=== PATIENT | female | born 2000 | race Caucasian/White ===

== ENCOUNTER → 2024-07-29 08:00 | Outpatient (BNV) | payer BC, SELFPAY | PROVIDERS: Visit Provider Internal Medicine | DX: I47.10 Supraventricular tachycardia, unspecified (principal) | CPT/HCPCS: 93244 ==

== ENCOUNTER → 2024-07-29 15:00 | Outpatient (REF) | payer BC, SELFPAY ==
--- OUTSIDE RECORDS SUMMARY | 2024-08-01 16:13 | XMS_ITS | Encounter Summary ---
Author Organization [facility] Address [address] [place] [id number] Phone Care Team Providers Care Consumer Attorney Name Role Phone Marielle Yin MD Primary Care Provider [phone] Encounter Details Date Type Department Care Team (Late st Contact Info) Description 04/24/2012 Documentation [facility] [place] [facility] Family Medicine [address] [place] [address] Family Medicine, Physician [address] [place] [address] Social History Tobacco Use Types Packs/Day Years Used Date Smoking Tobacco: Never Assessed Comments Unknown Sex and Gender Information Value Date Recorded Sex Assigned at Not on file Legal Sex Female 12:30 PM EDT Gender Identity Not on file Sexual Orientation Bisexual 03/15/2021 4: 16 PM EST documented as of this encounter Plan of Treatment Not on file documented as of this encounter Visit Diagnoses Not on filedocumented in this encounter Care Teams Consumer Attorney Relationship Specialty Start Date End Date Marielle Yin MD [address] [place] [id number] PCP - General 05/20/19 06/11/23 documented as of this encounter
--- OUTSIDE RECORDS SUMMARY | 2024-08-01 16:13 | XMS_ITS | Encounter Summary ---
Author Organization [facility] Address [address] [place] [phone] Phone Care Team Providers Care Oyster Cultivator Name Role Phone Marielle Yin MD Primary Care Provider [phone] Reason for Visit * Reason Comments Med Refill Encounter Details Date Type Department Care Team ([facility] st Contact Info) Description 04/12/2021 Refill [facility] [place] [address] [place] [address] Marielle Yin MD [address] [place] [phone] Acute asthma Social History Tobacco Use Types Packs/Day Years Used Date Smoking Tobacco: Never Comments:Never smoker Comments No Sex and Gender Information Value Date Recorded Sex Assigned at Not on file Legal Sex Female 12:30 PM EDT Gender Identity Not on file Sexual Orientation Bisexual 03/15/2021 4: 16 PM EST documented as of this encounter Miscellaneous Notes * Telephone Encounter - Anabell Meredith LPN - 04/12/2021 6:19 PM EST Last refill 03/15/21-VM full unable to LM. Denied rx request asking that pt contact our office. documented in this encounter Plan of Treatment Not on file documented as of this encounter Visit Diagnoses Diagnosis Acute asthma Unspecified asthma documented in this encounter Care Teams Oyster Cultivator Relationship Specialty Start Date End Date Marielle Yin MD [address] [place] [address] PCP - General 05/20/19 3 documented as of this encounter
--- OUTSIDE RECORDS SUMMARY | 2024-08-01 16:13 | XMS_ITS | Encounter Summary ---
Author Organization [facility] Address [address] [place] [address] Phone Care Team Providers Care Automobile Mechanic Name Role Phone Marielle Yin MD Primary Care Provider [phone] Encounter Details Date Type Department Care Team (Late st Contact Info) Description 06/08/2019 Conversion Encounter [facility] [address] [place] [address] Marielle Yin MD [address] [place] [address] Social History Tobacco Use Types Packs/Day Years Used Date Smoking Tobacco: Never Comments:Never smoker Comments Unknown Sex and Gender Information Value Date Recorded Sex Assigned at Not on file Legal Sex Female 12:30 PM EDT Gender Identity Not on file Sexual Orientation Bisexual 03/15/2021 4: 16 PM EST documented as of this encounter Plan of Treatment Not on file documented as of this encounter Visit Diagnoses Not on filedocumented in this encounter Care Teams Automobile Mechanic Relationship Specialty Start Date End Date Marielle Yin MD [address] [place] [address] PCP - General 05/20/19 06/11/23 documented as of this encounter
--- OUTSIDE RECORDS SUMMARY | 2024-08-01 16:13 | XMS_ITS | Clinical Summary ---
Author Organization [facility] Address [address] [place] [phone] Phone Care Team Providers Care Shaft Sinker Name Role Phone Unavailable Primary Care Provider Unavailabl e Allergies No known active allergies Medications citalopram 40 MG tablet 1 Active Magnesium 100 MG capsule magnesium Active Cetirizine HCl (ZyrTEC Allergy) 10 MG capsule Zyrtec 10 mg capsule Take by oral route. Active albuterol HFA 108 (90 Base) MCG/ACT inhalerIndicati ons:Acute asthma Inhale 2 puffs every 4 (four) hours as needed for wheezing or shortness of breath. 1 Units 1 Active Additional Information Patient not taking.Reported on 06/08/2022 Active Problems Problem Noted Date Diagnosed Date COVID-19 08/28/2021 Overview (08/28/2021): ER at [facility] [place] for chest pain and SOB. Allergic rhinitis 07/13/2021 Overview (07/13/2021): 07/29: f/u allergy - rec restart allergy shots and start up OTC meds - antihistamine and flonase Anxiety 03/15/2021 Overview (03/15/2021): Therapy and psychiatry. Assessment & Plan (03/15/2021 4:43 PM EST): Continue Celexa as prescribed by psychiatry. Continue therapy. BMI 33.0-33.9,adult 03/15/2021 Overview (03/15/2021): Refer to nutrition. Assessment & Plan (03/15/2021 4:46 PM EST): Refer to artificial stone setter. Attention deficit hyperactivity disorder 021 Assessment & Plan (03/15/2021 4:39 PM EST): Not taking medications at this time. Follow up with psychiatry as needed. Acute asthma 10/05/2020 Overview (07/13/2021): 02/27: good control per handyperson. Albuterol prn. 07/29: exacerbation - seen by allergy. Start Advair. Assessment & Plan (03/15/2021 4:40 PM EST): Continue to use albuterol as needed with URI/sinus infection. Refill sent to pharm. Chronic maxillary sinusitis 05/05/2020 Overview (03/15/2021): CT sinus 2017 with trace maxillary sinus disease. [facility] - last 04/2019, consider balloon sinuplasty, looking for ENT option near [facility]. No prior improvement on multiple rounds of antibiotics, sudafed, antihistamines, or flonase. Refer back to ENT 04/2020. 10/27 Augmentin 02/27 21 day course recommended but pt says she only got a 14 day course: Astelin nasal spray, flonase - per allergy; 03/29: cefdinir 21 day course sent to pharm. Follow up with ENT if not improving. Assessment & Plan (03/15/2021 4:39 PM EST): Start 21 day course of Cefdinir. Follow up with ENT if not improving. Plenty of fluid. Assessment & Plan (02/15/2021 12:14 PM EST): Will tx with extended course of Augmentin. This was previously prescribed by ENT in October but she reports she did not take the medication. Rec f/u with ENT. Assessment & Plan (05/05/2020 4:50 PM EST): Continued sinus pressure with some ear and balance symptoms, but nonfocal exam besides some frontal and maxillary sinus tenderness. Feels poorly, but no fever or chills. Discussed unlikely to be bacterial at this point given the chronicity and symptoms, but did offer a course of augmentin given the point tenderness if unable to see ENT in the near future. Also recommended to try nasal saline. She has used a lot of products in the past, but never really tried saline and I think it could help some of the inflammation and congestion. Plan to see ENT here, but will likely need to find an ENT option at college like previously discussed last year. Offered covid testing based on symptoms, Marisabel opting to wait for her test to return to school. Call for worsening symptoms or fever. OK to rx augmentin 500 BID x14 days if she calls back. Dysmenorrhea in adolescent 04/18/2018 Assessment & Plan (03/15/2021 4:41 PM EST): Recommend return to [facility] and discuss IUD as an option. Discussed IUD and DepoProvera with pt today. Depressive disorder 04/18/2018 Overview (03/15/2021): Admission [facility] [place] 01/27; had SI. Psychaitry and therapy. Taking Celexa. Assessment & Plan (03/15/2021 4:43 PM EST): Continue with therapy and psychiatry. Continue medications - Celexa - as prescribed by psychiatry. Resolved Problems Problem Noted Date Diagnosed Date Resolved Date Bacterial vaginosis 09/17/2020 03/15/20 Overview (09/17/2020): ER due to pelvic pain. Immunizations Immunization Administration Dates Next Due COVID-19 12/28/2021,08/02/2020,07/05/2020 COVID-19 Moderna, bivalent, 12+ years 12/28/2021 DTaP 01/23/2006,08/29/2002 DTaP 5 2001,2001,2001 HPV, Quadrivalent 08/28/2012,04/24/2012,02/07/20 12 Hep A, ped/adol 03/27/2017,02/01/2016 Hep B, ped/adol 2001,2001,2001 Hib (HbOC) 08/29/2002, 2,2001,03/26 IPV 01/23/2006, 3,2002,06/05,2001 Influenza 01/21/2004 Influenza, injectable, quadr ivalent, preservative free 03/16/2021,04/17/2018,03/27/2017,01/31,01/27/2015,02/18/2014,02/11/2013 ,02/07/2012,01/20/2011,01/21/2010,01/07,02/17/2008,01/29/2007 MMR 01/30/2005,04/24/2002 Meningococcal Conj (Menactra) MCV4P 04/17/2018,1 Pneumococcal Conjugate 08/29/2002,2001,2001,03/26 Tdap 10/20/2022,02/07/2012 Unknown Vaccine 01/21/2004 Varicella 02/07/2012,2002 Family History Medical History Relation Name Comments No Known Problems Father Depression Mother Relation Name Status Comments Father Alive age: 61 Maternal Grandfather Maternal Grandmother metasta tic cancer Mother Alive Paternal Grandfather Paternal Grandmother Social History Tobacco Use Types Packs/Day Years Used Date Smoking Tobacco: Never Comments:Never smoker Comments No Sex and Gender Information Value Date Recorded Sex Assigned at Not on file Legal Sex Female 12:30 PM EDT Gender Identity Not on file Sexual Orientation Bisexual 03/15/2021 4: 16 PM EST Last Filed Vital Signs Vital Sign Reading Time Taken Comments Blood Pressure 118/72 06/08/2022 2:59 PM EST Pulse 107 06/08/2022 2:59 PM EST Temperature 37.5 ??C (99.5 ??F) 06/08/2022 2:59 PM ES T Respiratory Rate - - Oxygen Saturation - - Inhaled Oxygen Concentration - - Weight 92.4 kg (203 lb 12.8 oz) 06/08/2022 2:59 PM EST Height 167.6 cm (5' 6 ) 03/15/2021 3:46 PM EST Body Mass Index 32.89 03/15/2021 3:46 PM EST Plan of Treatment Health Maintenance Due Date Last Done Comments Men B Vaccine (1 of 2 - Standard) 2017 Influenza Vaccines (#1) 2023 02/20/20, 03/16/2021, 04/17/2018, Additional history exists COVID-19 Vaccine (2023-2 5 season) 2023 02/19/2023, 12/28/2021, 12/28/2021, Additional history exists DTaP,Tdap,and Td Vaccines (8 - Td or Tdap) 10/20/2032 10/20/2022, 02/07/2012, 01/23/2006, Additional history exists Hepatitis B Vaccines Completed 2001, 2001, 2001 HIB Vaccines Completed 08/29/2002, 07/08, 2001, Additional history exists Pneumococcal Vaccine Completed 08/29/2002, 2001, 2001, Additional history exists MMR Vaccines Completed 01/30/2005, 04/24/2002 IPV Vaccines Completed 01/23/2006, 08/08, 2002, Additional history exists Varicella Vaccines Completed 02/07/2012, 2002 HPV Vaccines Completed 08/28/2012, 04/09, 02/07/2012 Hepatitis A Vaccines Completed 03/27/2017, 02/01/20 16 Meningococcal Vaccine Completed 04/17/2018, 012 Procedures * Due to [place] [employer] law, this organization might not be sharing sensitive test results. Procedure Name Priority Date/Time Associated Diagnosis Comments CHLAMYDIA AND GONORRHEA, AMPLIFIED Routine 10/04/2020 3:52 PM EDT Lower abdominal pain from Last 3 Months or Most Recently Relevant to Health Maintenance Results * Due to [place] [employer] law, this organization might not be sharing sensitive test results. * Chlamydia and Gonorrhoea, Amplified (10/04/2020 3:52 PM EDT) Chlamydia Trachomatis, Amplified NEGATIVE Negative N/A [facility] Neisseria Gonorrhoeae DNA NEGATIVE Negative N/A [facility] Comment:Work Performed By Tammy Vasques environmental 10/04/2020 3:5 2 PM EDT 10/04/2020 5:48 PM EDT us Rafia Schreiber NP LAB MICROBIOLOGY - [facility] Final Result [facility] [address] [place] [address] from Last 3 Months or Most Recently Relevant to Health Maintenance Insurance [facility]
== END ==
LOC: HO.CARD 15:00
PROVIDERS: Visit Provider Nurse Practitioner Women's Health
DX: R42 Dizziness and giddiness (principal)
CPT/HCPCS: 93242

== ENCOUNTER 2024-09-16 06:32 | Outpatient (REF) | payer BC, SELFPAY ==
--- NOTE | ~2024-09-16 | US_ITS ---
EXAMINATION: US PELVIS TRANSABDOMINAL AND TRANSVAGINAL HISTORY: CHECK IUD COMPARISON: There are no prior studies available for comparison. TECHNIQUE: Transabdominal and endovaginal real-time 2D curtis-scale ultrasound was performed. FINDINGS: Uterus: The uterus is normal in size, measuring 6.8 x 3.2 x 3.7 cm. Myometrium has a normal echotexture. No fibroids are identified. Endometrium: The endometrial stripe measures 3 mm in thickness. An IUD is seen in the appropriate position in the endometrial canal. Right ovary: The right ovary measures 3.2 x 2.2 x 2.7 cm. The right ovary is normal in size and echotexture. Left ovary: The left ovary measures 3.0 x 2.5 x 2.6 cm. The left ovary is normal in size and echotexture. Pelvic fluid: none. US/US pelvic and transvaginal IMPRESSION: Unremarkable pelvic ultrasound. IUD in appropriate position in the endometrial canal. Electronically signed by: Sav Whitfield MD 09/17/2024 07:09 AM EDT
== END 2024-09-16 06:33 | disposition home or self-care (01) ==
LOC: HO.UMASIMG 06:32
PROVIDERS: Visit Provider Nurse Practitioner Women's Health
DX: Z30.431 Encounter for routine checking of intrauterine contraceptive device (principal); N76.0 Acute vaginitis
CPT/HCPCS: 76830; 76856

== ENCOUNTER → 2024-09-16 15:30 | Outpatient (BNV) | payer BC, SELFPAY | PROVIDERS: Visit Provider Radiology Diagnostic Radiology | DX: Z30.431 Encounter for routine checking of intrauterine contraceptive device (principal) | CPT/HCPCS: 76830; 76856 ==